=== PATIENT | female | born 1985 | race Caucasian/White ===

== ENCOUNTER 2018-04-09 13:15 | Inpatient (IN) | payer SELFPAY ==
[2015-10-09 05:55] VITALS: BMI 30.7
--- NOTE | 2018-04-09 13:46 | PCM.HP.OB ---
- Problem List (1) Active labor at term Status: Acute History Date of Admission: 04/09/18 Final DONG: 04/14/18 Final DONG Source: LMP Gestational age: 39 Weeks and 2 Days History of this : This is a 32 year-old, G [3], P [2], at 39+2 weeks gestational age presenting to triage reporting regular ctx since this morning. After last 30 minutes, patient's contractions have become closer and are 2-3 minutes apart. Patient denies LOF, denies VB. Reports +FM. Patient intiated care at 8 weeks and course has been unremarkable. Allergies No Known Allergies Allergy (Verified 01/13/14 12:06) Home Medications: Home Medications Vits [Prenatabs FA ] 1 tablet PO DAILY 01/13/14 Naproxen [Naprosyn] 250 - 500 mg PO Q8H PRN PRN #30 tablet 10/10/15 PNV Smoking Status: Never smoker Alcohol: None Number of Fetus(es): 1 Heart Tracing: Baseline 145, moderate variability, + accels, no decels noted TOCO Analysis: Ctx q 2-5 minutes, palpate moderately strong History Past Pregnancies: Past Pregnancies Delivery Date Name GA/Weeks Outcome Route Weight Infant Gender Labor Length Anesthesia Delivery Location Provider FOB 01/13/2014 39+6 Live Term 8#1oz M [facility] 10/09/2015 40+1 Live Term M [facility] Labs: HIV NR, HepBsAg Neg, Rubella Immune, Syphilis NR, A+ with neg abs screen, CBC WNL x 2, 1 hour GCT = 132, GBS Neg, Urine culture and Urine Tox negative, GC/CT = Neg/Neg Expected Infant Delivery Method: Spontaneous Vaginal Describe any other labor & delivery plans:: [facility] Number of Visits: 13 Review of Systems Constitutional: Denies: Chills, Fever, Weight Change HEENT: Denies: Head Aches, Sinus Congestion, Sinus Drainage Cardiovascular: Denies: Chest Pain, Palpitations Respiratory: Denies: Cough, Shortness of breath at rest, Sputum production Gastrointestinal: Denies: Nausea, Vomiting Genitourinary: Denies: Dysuria Gynecological: Denies: Vaginal bleeding, Vaginal discharge Musculoskeletal: Denies: Joint Pain, Joint Tenderness Skin: Denies: Rash, Wounds Neurological: Denies: Numbness, Tingling, Focal weakness Psychiatric: Denies: Anxiety, Depression, Homicidal Ideations, Suicidal Ideations Hematologic/ Lymphatic: Denies: Easy Bruising, Easy Bleeding Physical Exam Vitals: See nursing note for vitals - Normotensive and Afebrile General: Alert, Oriented x3, No apparent distress HEENT: Atraumatic, Normocephalic. Negative for: Thyromegaly, Lymphadenopathy Cardiovascular: Regular rate, Regular Rhythm Lungs: Normal air movement Abdomen: Gravid, Appropriate for Gestational Age - EFW = 7.5# Extremities:: No edema Neurological: Deep Tendon Reflexes 2+/4 and Symmetrical, Neuro grossly intact QUALITY CONTROL MICROBIOLOGIST: Normal external genitalia. Negative for: Vulvar lesions Estimated gestational size: Appropriate for gestational size Presentation: Cephalic Cervix Dilation (cm): 6 Station: -2 Effacement (%): 80 Assessment/Plan All Active Problems Active labor at term (Acute) This is a 32 year-old, G [3], P [2], at 39+2 weeks gestational age, Active Labor, Category I FHT. P: 1) Anticipate 2) Dr. Moore back up physician notified of admission 3) Expectant Management Daisha Mello APRN-SLADE
[2018-04-09 13:48] VITALS: BMI 30.4
[2018-04-09 14:01] LABS: Hematocrit 39.7 % (37-47); Hemoglobin 13.6 g/dl (12.0-15.0); Mean Corp Hgb Conc 34.3 g/gl (32-36); Mean Corpuscular Hgb 29.1 pg (27.0-32.0); Mean Corpuscular Volume 84.8 fL (81-99); Platelet Count 233 K/mm3 (150-450); RBC Distribution Width CV 13.4 % (11.6-14.6); RBC Distribution Width SD 40.8 fl (35.1-43.9); Red Blood Count 4.68 M/mm3 (4.2-5.4); White Blood Count 11.3 K/mm3 (4.4-11.0)
[2018-04-09 14:02] LABS: Scan Indicated on CBC? Y/N NO
[2018-04-09] MEDS: Oxytocin 30 units/NS 500 ml 30 UNITS/500 ML IV.SOLN 334 UNITS IV (14:08)
[2018-04-09] MEDS: Oxytocin 30 units/NS 500 ml 30 UNITS/500 ML IV.SOLN 167 UNITS IV (14:38)
--- NOTE | 2018-04-09 14:55 | PCM.OB.VAG ---
- Problem List (1) Active labor at term Status: Resolved Vaginal Delivery Maternal Presentation: Active Labor Patient presented in active labor after charley since 0200, patient was found to be 6/80/-2 on admission. Amniotic Membrane Rupture Type: Spontaneous Amniotic Fluid Description: Clear Final DONG: 04/14/18 Gestational age: 39 Weeks and 2 Days Date of Procedure: 04/09/18 Pre-Operative Diagnosis: Active Labor Post-Operative Diagnosis: Delivery of Viable Baby Girl Surgery/ Procedure Performed: Spontaneous Vaginal Delivery Type of Anesthesia: None Description of Procedure: Patient labor presented uneventfully and SROM occurred when patient was 8-9cm. Patient then quickly felt spontaneous urge to bear down. Patient delivered viable girl over 2nd degree lacerated perineum at 1402. head delivered OA and then restituted to MARYCRUZ-->LOT. Loose nuchal cord noted and baby was somersaulted through cord during delivery. Infant shoulders and then body quickly delivered. Infant with immediate cry and respirations, placed on maternal chest where was dried and stimulated. mouth and nose bulb suctioned. Apgars 8 and 9. Weight pending. Umbilical cord clamped and cut once it stopped pulsing by FOB. Placenta then delivered spontaneously via Chandler mechanism intact with 3VC. FF to massage at 2FB below umbilicus, midline. IV pitocin initiated per protocol for active management of the 3rd stage. Upon inspection of vaginal vault, 2nd degree perineal laceration noted. Repaired in the usual fashion under 1% Lidocaine and 3-0 Rapide suture. EBL = 350cc. Sponge and needle count correct. Vaginal sweep negative. Urbd-gf-ycra initiated, bonding and started. Daisha MITCHELL Presentation: Vertex, MARYCRUZ Placental Delivery Description: Spontaneous Placenta Disposition: [facility] Cord Vessel Description: 3 Vessels Cord Entanglement: Around neck x 1, loose Estimated Blood Loss: 350 Infant A gender: Female (1 minute): 8 (5 minute): 9 Episiotomy Description: None Laceration: Perineal Extension/lac, 2nd degree Medications given after delivery: IV Pitocin Complications: None
--- NOTE | 2018-04-09 15:06 | DCINST_ITS ---
Discharge Diet: No Restrictions Discharge Activity: Return to Normal Activity, May not drive while taking narcotic pain medications., May Shower May resume sexual activity in: 4-6 weeks Additional Activity Instructions:: Nothing in the vagina for 4-6 weeks. You may return to work/school in 6 weeks. Call your doctor if your incision/area has: Continuous Slow Oozing, Sudden Increased Bleeding, Increased Pain/ Swelling, Increased Redness, Foul Smelling Discharge Call your doctor if you observe: Fever of 101 or Higher, Inability to urinate, Inability to have a bowel movement, Using more than one pad per hour Additional Instructions: If you experience any of the following, contact your healthcare provider. * Bleeding that soaks a pad every hour for 2 hours * Fever 100.4 or higher * Unrelieved incision or abdominal pain * Swelling, redness, discharge or bleeding from your incision or episiotomy site * Your incision begins to separate * Problems urinating (including inability to urinate or burning while urinating). * Visual changes * Severe headache * Flu-like symptoms * Pain or redness in one of both of your breasts * Pain, warmth, tenderness or swelling in your legs, especially the calf area * Frequent nausea and vomiting * Symptoms of depression or anxiety If you experience any of the following, call 911 or go to the nearest Emergency Room. * Chest pain * Problems breathing * Seizure activity * Partial or complete paralysis of a body part, slurred speech, weakness or drooping of the face, or a sudden inability to walk or hold your balance Allergies/Adverse Reactions: Allergies No Known Allergies Allergy (Verified 04/09/18 13:49) Medications to take at Discharge Vits [Prenatabs FA ] 1 tablet PO DAILY 01/13/14 Please Follow Up With: Daisha Mello CNM When: Call to make an appointment with your provider in 2 and 6 weeks. Primary Care Physician: Care Physician,No Primary [Primary Care Provider] - Test Results: Test results from this visit will be discussed in further detail at your follow- up appointment, if applicable. Proposed Discharge Date: 04/11/18
[2018-04-09 18:00] VITALS: BP 110/67; PULSE 97; RESP 16; TEMP 36.8; O2SAT 100
[2018-04-09 19:55] VITALS: BP 117/73; PULSE 98; RESP 18; TEMP 37.1
[2018-04-10 00:25] VITALS: BP 113/74; PULSE 70; RESP 18; TEMP 36.8
[2018-04-10] MEDS: Acetaminophen 500 MG Tablet 1000 MG PO (00:38)
[2018-04-10 05:00] VITALS: BP 113/71; PULSE 68; RESP 18; TEMP 36.6
[2018-04-10 08:02] VITALS: BP 107/67; PULSE 71; RESP 16; TEMP 36.7; O2SAT 99
--- NOTE | 2018-04-10 10:12 | PCM.PN.OB ---
Subjective: Patient sitting up in bed at this time, about to go into shower. Denies any issues or complaints currently. Reports that baby is latching well at breast. Denies issues with ambulation or urination; denies TOVAR, scotoma, or dizziness. Desires discharge to home. Objective: VSS, Afebrile Nipples without cracks or blisters, no erythema or ecchymoses noted Abdomen NT x 4 quadrants, FF midline 4FB below umbilicus +2/4 reflexes in LE, no edema noted scant rubra lochia, perineum well-approximated - Physical Exam General: Alert, Oriented x3, Cooperative HEENT: Atraumatic, Normocephalic Neck: Supple Lungs: Normal air movement Cardiovascular: Regular rate, No murmurs Abdomen: Soft, Non Tender Extremities: No edema, Capillary Refill Less than 3 Seconds, No Calf Tenderness Skin: No rashes, No breakdown Musculoskeletal: No Tenderness to Palpation of Joints or Extremities Neurological: Cranial nerves II-XII grossly intact, Deep Tendon Reflexes 2+/4 and Symmetrical Psych/Mental Status: Normal Affect, Appropriate Vital Signs Temp Pulse Resp BP Pulse Ox 98.1 F 71 16 107/67 99 04/10/18 08:02 04/10/18 08:02 04/10/18 08:02 04/10/18 08:02 04/10/18 08:02 Oxygen Delivery Method Room Air Weight: 206 lb 5.643 oz Body Mass Index (BMI) 30.4 Intake and Output for Last 24 Hours 04/08/18 04/09/18 04/10/18 23:59 23:59 23:59 Intake Total 450 / 450 Output Total 850 / 850 Balance -400 / -400 Laboratory Tests Past 24 Hrs 04/09/18 04/09/18 13:38 13:38 WBC 11.3 H RBC 4.68 Hgb 13.6 Hct 39.7 MCV 84.8 MCH 29.1 MCHC 34.3 RDW 13.4 RDW Differential 40.8 Plt Count 233 MPV 11.0 Blood Type A POSITIVE Antibody Screen NEGATIVE Medical Necessity - Tobacco Use Smoking Status: Never smoker Assessment/Plan All Active Problems Active labor at term (Resolved) 32 y/o now, s/p , PPD #1, Normal PP Course P: 1) Anticipate discharge to home today 2) Anticipatory guidance and PP teaching provided 3) RTC at 2 and 6 weeks PP Daisha MITCHELL
[2018-04-10 12:37] VITALS: BP 114/70; PULSE 78; RESP 16; TEMP 36.6; O2SAT 99
[2018-04-10] MEDS: Naproxen 250 MG Tablet PO (12:42)
== END 2018-04-10 04:00 | disposition home or self-care (01) | DRG 807 ==
PROVIDERS: Admitting Provider Obstetrics & Gynecology; Referring Provider Obstetrics & Gynecology; Visit Provider Obstetrics & Gynecology
DX: O69.81X0 Labor and delivery complicated by cord around neck, without compression, not applicable or unspecified (principal); Z37.0 Single live birth; Z3A.39 39 weeks gestation of pregnancy; O70.1 Second degree perineal laceration during delivery
CPT/HCPCS: 59025; 59050; 85027; 86850; 86900; 99218; G0378

== ENCOUNTER → 2023-12-06 | Outpatient (CLI) | payer OTHER, SELFPAY ==
--- NOTE | 2023-12-06 11:34 | RAD_ITS ---
STUDY: X-RAY CHEST REASON FOR EXAM: Female, 38 years old. PNEUMONIA TECHNIQUE: PA and lateral views of the chest. COMPARISON: None. FINDINGS: The lungs are clear and expanded. There is no demonstrated pleural abnormality. Normal size heart. Normal mediastinum and jia. Normal visualized pulmonary arteries. Normal visualized aortic arch and descending thoracic aorta. Normal visualized thoracic spine. Normal visualized ribs, clavicles, and shoulders. There is no demonstrated abnormality of the visualized soft tissue structures of the upper abdomen. RAD/Chest PA and Lateral IMPRESSION: Normal x-ray examination of the chest. Electronically Signed: Bennett Andrews MD at 12:40 EDT ,
== END | disposition home or self-care (01) ==
LOC: RAD 11:30
PROVIDERS: PCP Nurse Practitioner Family; Referring Provider Nurse Practitioner Family; Visit Provider Nurse Practitioner Family
DX: J06.9 Acute upper respiratory infection, unspecified (principal)
CPT/HCPCS: 71046